=== PATIENT | female | born 1950 | race Caucasian/White ===

== ENCOUNTER → 2017-02-26 | Outpatient (CLI) | payer MEDICARE ==
[~2017-02-26] MED LIST: AMLO25TA PO; ASPI81TA85 PO; BUSP5TA PO; ISOVUE-370 76% 100ML VIAL (Q9967) As Ordered ONE; TRIA37.53 PO; VICO7.5T11 PO
--- NOTE | 2017-02-26 14:46 | REP ---
CT CHEST WITHOUT IV CONTRAST: CT chest performed without IV contrast. CT images are performed using high logic protocol. Comparison is made with prior studies 01/16/2017, 09/18/2016 and 04/03/2016. In the right apex, there is somewhat spiculated nodular soft tissue opacity, which has progressively increased in size since the 2016 exam. Current measurements are approximately 2.6 x 2.1 cm. The density is in contact with the pleural surface posteromedially. No other suspicious parenchymal opacity is seen. There are scattered fibrotic changes in both lungs. There is mild noncalcified pleural plaquing on the left posteriorly and inferiorly. No definite adenopathy is seen. There is no cardiomegaly. There is no pleural or pericardial effusion. There are degenerative changes of the spine. The visualized upper abdominal structures are grossly unremarkable. IMPRESSION: Irregular spiculated soft tissue opacity right apex progressively increasing in size since the 2016 exam. No other suspicious lung nodule. There are noncalcified pleural plaques bilaterally but more so on the left without a mass-like appearance. Signed by Seferino Jacques MD 02/27/2017 07:54 P
== END ==
LOC: M RAD 12:05
PROVIDERS: ATTEND Internal Medicine Pulmonary Disease
DX: R91.8 Other nonspecific abnormal finding of lung field (principal)

== ENCOUNTER 2017-02-27 05:50 | Day surgery (SDC) | payer MEDICARE ==
[~2017-02-27] VITALS: Ht 157.5 cm; Wt 51.7 kg
[~2017-02-27 05:50] MED LIST changes: -ASPI81TA85 PO; -ISOVUE-370 76% 100ML VIAL (Q9967) As Ordered ONE
[2017-02-27] MEDS ORDERED: LR 1,000 ML IV ONE (06:00)
[2017-02-27] MEDS ORDERED: ASPI81TA85 PO (06:44)
[2017-02-27] MEDS ORDERED: ROCURONIUM BROMIDE 50 MG/5 ML VIAL/SYRINGE As Ordered ONE (07:17)
[2017-02-27] MEDS ORDERED: dexameTHASONE 4 MG/ML 1ML VIAL (J1100) As Ordered ONE (07:17)
[2017-02-27] MEDS ORDERED: LIDOCAINE 2% INJ 100 MG/5 ML SDV (FOR ANES.) As Ordered ONE (07:17)
[2017-02-27] MEDS ORDERED: PROPOFOL 200 MG/20 ML VIAL As Ordered ONE (07:17)
[2017-02-27] MEDS ORDERED: fentaNYL 100 MCG/2 ML INJECTION (J3010) As Ordered ONE (07:18)
[2017-02-27] MEDS ORDERED: MIDAZOLAM INJ 2 MG/2 ML VIAL (J2250) As Ordered ONE (07:18)
[2017-02-27] MEDS ORDERED: THROMBIN SOLN 20,000 UNITS KIT As Ordered ONE (07:21)
[2017-02-27] MEDS ORDERED: LIDOCAINE 1% SDV INJ 30 ML VIAL As Ordered ONE (07:21)
[2017-02-27] MEDS ORDERED: EPINEPHrine 1MG/ML INJ 30ML MD-VIAL As Ordered ONE (07:21)
[2017-02-27] MEDS ORDERED: LIDOCAINE 4% TOPICAL SOLN 50 ML BTL As Ordered ONE (07:22)
[2017-02-27] MEDS ORDERED: LIDOCAINE VISCOUS 2% SOLN 15ML UDC As Ordered ONE (07:22)
[2017-02-27] MEDS ORDERED: ePHEDrine SULFATE 25 MG/5 ML(5MG/ML) SYRINGE As Ordered ONE (08:13)
[2017-02-27] MEDS ORDERED: EPINEPHrine 1MG/10ML SYRINGE 1.5IN As Ordered ONE (08:15)
[2017-02-27] MEDS ORDERED: ONDANSETRON 4MG/2ML VIAL (J2405) As Ordered ONE (08:25)
[2017-02-27] MEDS ORDERED: GLYCOPYRROLATE INJ 0.2 MG/ML 2 ML VIAL As Ordered ONE (08:25)
[2017-02-27] MEDS ORDERED: NEOSTIGMINE 10 MG/10 ML VIAL (J2710) As Ordered ONE (08:25)
[2017-02-27] MEDS ORDERED: fentaNYL 100 MCG/2 ML INJECTION (J3010) IV PRN (09:30)
[2017-02-27] MEDS ORDERED: ONDANSETRON 4MG/2ML VIAL (J2405) IV PRN (09:30)
[2017-02-27] MEDS ORDERED: LR 1,000 ML IV SCH (09:30)
--- NOTE | 2017-02-27 09:41 | REP ---
CHEST, ONE VIEW: HISTORY: Postop. COMPARISON: CT chest 02/26/2017. An ill-defined parenchymal density is present in the right lung apex. This corresponds to the spiculated mass seen in the recent CT examination. Patchy density is present in the right mid lung consistent with atelectasis or infiltrate. The left lung is clear. The heart is normal in size. The pulmonary vasculature is normal in appearance. IMPRESSION: 1. There is an ill-defined parenchymal density in the right lung apex corresponding to the spiculated mass seen in the recent CT examination . 2. Right mid lung atelectasis or infiltrate. Signed by Shyam Vides MD 02/27/2017 09:48 A
[2017-02-27 10:55] VITALS: BP 147/68
--- NOTE | 2017-02-27 13:51 | RO ---
DATE OF PROCEDURE: 02/27/2017 PREOPERATIVE DIAGNOSIS: Right upper lobe, lesion abnormal chest CT. POSTOPERATIVE DIAGNOSIS: Right upper lobe lesion, abnormal chest CT. FINDINGS: Smoker airway and mucus. PROCEDURE: Bronchoscopy with electromagnetic navigation with both radial and linear endobronchial ultrasound. SURGEON: Dr. Greg Oreilly. PUTTY [employer] MAKER: None. ANESTHESIA: General. ESTIMATED BLOOD LOSS: None. DRAINS: None. SPECIMENS OBTAINED: 1. Right upper lobe transbronchial biopsies. 2. Right upper lobe FNA GenCut. 3. Right upper lobe bronchoalveolar lavage. 4. Endobronchial ultrasound FNA of the subcarinal node. No observed complications. None replaced. Attempted fiducial marker placement as described below. DESCRIPTION OF PROCEDURE: After informed consent was reviewed with the patient in the preoperative area, she was brought back to the pre-mapped OR room. Time-out was performed with two patient identifiers identifying correct site, correct procedure and general anesthesia was then initiated with an 8.5 endotracheal tube. Time-out was then again performed with two patient identifiers identifying correct site, correct procedure. Bronchoscope and airway was prepped with Cetacaine spray. Bronchoscope was then inserted into the airway. There was copious amounts of mucus. There was the right mainstem intubation. Therefore the endotracheal tube was pulled back. All airways had banding pitting and significant amounts of mucus. All airways were suctioned. RB 1-10 was examined without endobronchial lesions. The bronchus intermedius was normal. Right mainstem bronchus was otherwise normal. Gypsy was only mildly splayed. Left mainstem bronchus was normal. LB 1-10 was normal except for smoker's changes with banding and pitting and significant amounts of mucus. After all airways were suctioned, the bronchoscope was brought back into the endotracheal tube and automatic registration was then performed. Automatic registration was then confirmed and the target #1 in the right upper lobe was easily navigated. This was confirmed under fluoroscopy. After removal of the LG guide from the sheath, the radial ultrasound probe was placed showing near circumferential tumor. Radial probe was then removed. Forceps biopsies were taken along with a GenCut FNA. After adequate sampling, fiducial marker placement was attempted however due to the medial apical nature of the lesion, the Gold fiducial marker could not make the turn without bending the wire and therefore fiducial markers could not be placed due to anatomic location of the lesion. Bronchoalveolar lavage was then performed. The sheath was then removed. All airways were section. Hemostasis was assured and the bronchoscope was removed and the endobronchial ultrasound with linear probe was placed. I viewed the subcarinal area which did not show an enlarged lymph node. However, there was a lymph node present so sampling was performed for staging purposes. Right hilum was unremarkable and the 4R area was unremarkable. I obtained mostly blood on my sampling of the FNA of the subcarinal node. Four biopsies were taken. However, most returned blood, therefore sampling was stopped. After adequate hemostasis, endobronchial ultrasound was removed. The patient was extubated and is in recovery. There is no evidence of complications. Postprocedure chest x-ray shows no evidence of pneumothorax.
== END 2017-02-27 11:00 | disposition home or self-care (01) ==
LOC: M SDC 05:50
PROVIDERS: ATTEND Internal Medicine Pulmonary Disease
DX: C34.11 Malignant neoplasm of upper lobe, right bronchus or lung (principal); I10 Essential (primary) hypertension; R06.02 Shortness of breath; J44.9 Chronic obstructive pulmonary disease, unspecified; M81.0 Age-related osteoporosis without current pathological fracture; Z87.891 Personal history of nicotine dependence; Z79.899 Other long term (current) drug therapy
CPT/HCPCS: 31624; 31627; 31628; 31629; 31652; 71010; 77002; 87102; 87116; 87206; 88108; 88173; 88305; 88313; 88341; 88342; J1100; J2250; J2405; J2710; J3010

== ENCOUNTER 2017-11-09 18:40 | Emergency (ER) | payer MEDICARE ==
[2017-11-09] MEDS: PERCOCET 5MG/325MG TAB PO (21:51)
== END 2017-11-09 22:26 | disposition home or self-care (01) ==
LOC: M ED 18:40
DX: M25.511 Pain in right shoulder (principal); I10 Essential (primary) hypertension; M81.0 Age-related osteoporosis without current pathological fracture; Z87.891 Personal history of nicotine dependence; Z79.82 Long term (current) use of aspirin; Z79.899 Other long term (current) drug therapy
CPT/HCPCS: 99282

== ENCOUNTER 2017-11-12 23:21 | Emergency (ER) | payer MEDICARE ==
[2017-11-12] MEDS ORDERED: NORCO 5/325MG TABLET (BULK FOR ED) PO (23:45)
[2017-11-12] MEDS: NORCO, ANEXSIA 5/325MG TABLET (HYDROcodone/ACETAMINOPHEN) PO (23:45)
== END 2017-11-13 00:17 | disposition home or self-care (01) ==
LOC: M ED 23:21
DX: S46.911A Strain of unspecified muscle, fascia and tendon at shoulder and upper arm level, right arm, initial encounter (principal); X58.XXXA Exposure to other specified factors, initial encounter; Y92.9 Unspecified place or not applicable; Y93.9 Activity, unspecified; Y99.9 Unspecified external cause status; I51.9 Heart disease, unspecified; I10 Essential (primary) hypertension; Z79.82 Long term (current) use of aspirin; Z79.899 Other long term (current) drug therapy
CPT/HCPCS: 99284

== ENCOUNTER → 2017-11-15 | Outpatient (REF) | payer MEDICARE ==
[2017-11-15 11:50] LABS: BASO % 0.2 % (0.0-1.0); HEMATOCRIT 40.9 % (36.0-47.0); HEMOGLOBIN 14.5 g/dl (12.0-15.5); IMMATURE GRANULOCYTE % 1.5 % (0-3.0); LYMPH # 0.9 10^3/uL (1.5-4.5); LYMPH % 7.1 % (24.0-44.0); MEAN CORPUSCULAR HEMOGLOBIN 32.4 pg (27.0-33.0); MEAN CORPUSCULAR HGB CONC 35.5 g/dl (32.0-36.5); MEAN CORPUSCULAR VOLUME 91.5 fl (80.0-96.0); MONO % 7.3 % (0.0-5.0); NEUTROPHILS % 83.9 % (36.0-66.0); PLATELET COUNT, AUTOMATED 320 10^3/uL (150-450); RED BLOOD COUNT 4.47 10^6/uL (4.00-5.40); RED CELL DISTRIBUTION WIDTH 12.2 % (11.5-14.5); WHITE BLOOD COUNT 13.1 10^3/uL (4.0-10.0)
[2017-11-15 12:28] LABS: ALBUMIN 3.4 GM/DL (3.2-5.2); ALBUMIN/GLOBULIN RATIO 1.03 (1.00-1.93); ALKALINE PHOSPHATASE 74 U/L (45-117); ALT/SGPT 20 U/L (12-78); ANION GAP 7 MEQ/L (8-16); AST/SGOT 17 U/L (7-37); BILIRUBIN,TOTAL 0.5 MG/DL (0.2-1.0); BLOOD UREA NITROGEN 35 MG/DL (7-18); C REACTIVE PROTEIN QUANTITATIV < 0.30 MG/DL (0.00-0.30); CALCIUM LEVEL 8.8 MG/DL (8.8-10.2); CARBON DIOXIDE LEVEL 32 MEQ/L (21-32); CHLORIDE LEVEL 97 MEQ/L (98-107); CREATININE FOR GFR 0.86 MG/DL (0.55-1.30); GLOMERULAR FILTRATION RATE > 60.0 (>45); GLUCOSE, FASTING 87 MG/DL (70-100); POTASSIUM SERUM 3.8 MEQ/L (3.5-5.1); SODIUM LEVEL 136 MEQ/L (136-145); TOTAL PROTEIN 6.7 GM/DL (6.4-8.2)
[2017-11-15 12:52] LABS: ERYTHROCYTE SEDIMENTATION RATE 4 mm/hr (0-30)
[2017-11-20 11:24] LABS: ALBUMIN 3.98 GM/DL (3.29-5.55); ALBUMIN % 59.4 % (55.8-66.1); ALPHA-1-GLOBULIN % 4.2 % (2.9-4.9); ALPHA-1-GLOBULINS 0.28 GM/DL (0.17-0.41); ALPHA-2-GLOBULINS 0.76 GM/DL (0.42-0.99); ALPHA-2-GLOBULINS % 11.4 % (7.1-11.8); BETA-1-GLOBULINS % 5.9 % (4.7-7.2); BETA-2-GLOBULINS 0.31 GM/DL (0.19-0.55); BETA-2-GLOBULINS % 4.6 % (3.2-6.5); GAMMA GLOBULIN % 14.5 % (11.1-18.8); GAMMA GLOBULINS 0.97 GM/DL (0.65-1.58)
== END ==
LOC: M LABDRAW1 10:54
DX: S42.391A Other fracture of shaft of right humerus, initial encounter for closed fracture (principal); W18.30XA Fall on same level, unspecified, initial encounter; Y92.009 Unspecified place in unspecified non-institutional (private) residence as the place of occurrence of the external cause
CPT/HCPCS: 84165

== ENCOUNTER → 2017-11-26 | Outpatient (CLI) | payer MEDICARE | LOC: M RAD 09:13 | DX: M84.412D Pathological fracture, left shoulder, subsequent encounter for fracture with routine healing (principal) | CPT/HCPCS: 78306 ==

== ENCOUNTER 2018-01-14 00:13 | Emergency (ER) | payer MEDICARE ==
[2018-01-14] MEDS: MORPHINE 4 MG/ML 1ML VIAL/SYRINGE (J2270) IV ×4 (01:21→06:15)
[2018-01-14 01:55] LABS: BASO % 0.2 % (0.0-1.0); EOS # 0.2 10^3/uL (0.0-0.50); EOS % 0.9 % (0.0-3.0); HEMATOCRIT 32.1 % (36.0-47.0); IMMATURE GRANULOCYTE % 0.5 % (0-3.0); LYMPH # 0.7 10^3/uL (1.5-4.5); LYMPH % 3.7 % (24.0-44.0); MEAN CORPUSCULAR HEMOGLOBIN 32.5 pg (27.0-33.0); MEAN CORPUSCULAR HGB CONC 34.3 g/dl (32.0-36.5); MONO # 1.8 10^3/uL (0.0-0.8); MONO % 9.7 % (0.0-5.0); NEUTROPHILS # 15.6 10^3/uL (1.8-7.7); PLATELET COUNT, AUTOMATED 277 10^3/uL (150-450); RED BLOOD COUNT 3.38 10^6/uL (4.00-5.40); RED CELL DISTRIBUTION WIDTH 13.1 % (11.5-14.5); WHITE BLOOD COUNT 18.3 10^3/uL (4.0-10.0)
[2018-01-14 02:12] LABS: ANION GAP 8 MEQ/L (8-16); BLOOD UREA NITROGEN 15 MG/DL (7-18); CALCIUM LEVEL 9.1 MG/DL (8.8-10.2); CARBON DIOXIDE LEVEL 30 MEQ/L (21-32); CHLORIDE LEVEL 98 MEQ/L (98-107); GLOMERULAR FILTRATION RATE > 60.0 (>45); GLUCOSE, FASTING 103 MG/DL (70-100); POTASSIUM SERUM 3.3 MEQ/L (3.5-5.1); SODIUM LEVEL 136 MEQ/L (136-145)
== END 2018-01-14 06:32 | disposition short-term general hospital (02) ==
LOC: M ED 00:13
DX: C79.51 Secondary malignant neoplasm of bone (principal); G89.29 Other chronic pain; Z85.118 Personal history of other malignant neoplasm of bronchus and lung; M54.9 Dorsalgia, unspecified; J44.9 Chronic obstructive pulmonary disease, unspecified; I10 Essential (primary) hypertension; Z79.899 Other long term (current) drug therapy; Z79.82 Long term (current) use of aspirin
CPT/HCPCS: J2270

== ENCOUNTER → 2018-01-29 | Outpatient (CLI) | payer MEDICARE | LOC: M ONCR 14:24 | DX: C34.11 Malignant neoplasm of upper lobe, right bronchus or lung (principal); C79.51 Secondary malignant neoplasm of bone | CPT/HCPCS: G0463 ==

== ENCOUNTER 2018-01-30 09:57 | Outpatient (RCR) | payer MEDICARE | END 2018-02-10 | LOC: M ONCR 09:57 | DX: C79.51 Secondary malignant neoplasm of bone (principal) | CPT/HCPCS: 77307 ==

== ENCOUNTER → 2018-01-31 | Outpatient (REF) | LOC: SKLAB2 14:06 | DX: C79.51 Secondary malignant neoplasm of bone (principal); M25.50 Pain in unspecified joint ==

== ENCOUNTER 2018-02-02 23:41 | Emergency (ER) | payer MEDICARE ==
[2018-02-03] MEDS: PERCOCET 5MG/325MG TAB PO (01:30)
[2018-02-03 01:34] LABS: BASO % 0.5 % (0.0-1.0); EOS # 0.2 10^3/uL (0.0-0.50); EOS % 1.9 % (0.0-3.0); HEMATOCRIT 32.9 % (36.0-47.0); HEMOGLOBIN 11.2 g/dl (12.0-15.5); IMMATURE GRANULOCYTE % 0.5 % (0-3.0); LYMPH % 13.3 % (24.0-44.0); MEAN CORPUSCULAR VOLUME 97.1 fl (80.0-96.0); MONO # 1.1 10^3/uL (0.0-0.8); MONO % 14.5 % (0.0-5.0); NEUTROPHILS # 5.4 10^3/uL (1.8-7.7); NEUTROPHILS % 69.3 % (36.0-66.0); PLATELET COUNT, AUTOMATED 314 10^3/uL (150-450); RED BLOOD COUNT 3.39 10^6/uL (4.00-5.40); RED CELL DISTRIBUTION WIDTH 14.1 % (11.5-14.5); WHITE BLOOD COUNT 7.8 10^3/uL (4.0-10.0)
[2018-02-03 01:48] LABS: INR 0.92; PROTHROMBIN TIME 12.5 SECONDS (12.1-14.4)
[2018-02-03 01:49] LABS: PARTIAL THROMBOPLASTIN TIME 28.4 SECONDS (25.4-37.6)
[2018-02-03 01:56] LABS: ANION GAP 7 MEQ/L (8-16); BLOOD UREA NITROGEN 18 MG/DL (7-18); C REACTIVE PROTEIN QUANTITATIV 1.07 MG/DL (0.00-0.30); CARBON DIOXIDE LEVEL 32 MEQ/L (21-32); CHLORIDE LEVEL 96 MEQ/L (98-107); CREATININE FOR GFR 0.76 MG/DL (0.55-1.30); GLOMERULAR FILTRATION RATE > 60.0 (>45); GLUCOSE, FASTING 101 MG/DL (70-100); POTASSIUM SERUM 3.5 MEQ/L (3.5-5.1); SODIUM LEVEL 135 MEQ/L (136-145)
[2018-02-03 02:01] LABS: ERYTHROCYTE SEDIMENTATION RATE 31 mm/hr (0-30)
[2018-02-03 02:03] LABS: LACTIC ACID SEPSIS PROTOCOL 2.3 MMOL/L (0.4-2.0)
[2018-02-03] MEDS: APIXABAN 5 MG TAB (ELIQUIS) PO (06:04)
== END 2018-02-03 06:17 | disposition home or self-care (01) ==
LOC: M ED 23:41
DX: I82.611 Acute embolism and thrombosis of superficial veins of right upper extremity (principal)
CPT/HCPCS: 73060

== ENCOUNTER → 2018-02-04 | Outpatient (REF) ==
[2018-02-04 08:00] LABS: HEMATOCRIT 36.4 % (36.0-47.0); HEMOGLOBIN 12.2 g/dl (12.0-15.5); MEAN CORPUSCULAR HEMOGLOBIN 32.7 pg (27.0-33.0); MEAN CORPUSCULAR HGB CONC 33.5 g/dl (32.0-36.5); MEAN CORPUSCULAR VOLUME 97.6 fl (80.0-96.0); PLATELET COUNT, AUTOMATED 322 10^3/uL (150-450); RED BLOOD COUNT 3.73 10^6/uL (4.00-5.40); RED CELL DISTRIBUTION WIDTH 14.2 % (11.5-14.5); WHITE BLOOD COUNT 7.7 10^3/uL (4.0-10.0)
== END ==
LOC: SKLAB2 07:27
DX: Z79.01 Long term (current) use of anticoagulants (principal)

== ENCOUNTER 2018-02-06 14:17 | Emergency (ER) | payer MEDICARE ==
[2018-02-06] MEDS: MORPHINE 4 MG/ML 1ML VIAL/SYRINGE (J2270) IV ×2 (16:32→19:51)
[2018-02-06 16:42] LABS: BASO % 0.4 % (0.0-1.0); EOS # 0.2 10^3/uL (0.0-0.50); EOS % 2.1 % (0.0-3.0); HEMATOCRIT 33.7 % (36.0-47.0); HEMOGLOBIN 11.5 g/dl (12.0-15.5); IMMATURE GRANULOCYTE % 0.4 % (0-3.0); LYMPH # 0.9 10^3/uL (1.5-4.5); LYMPH % 10.5 % (24.0-44.0); MEAN CORPUSCULAR HEMOGLOBIN 33.5 pg (27.0-33.0); MEAN CORPUSCULAR HGB CONC 34.1 g/dl (32.0-36.5); MEAN CORPUSCULAR VOLUME 98.3 fl (80.0-96.0); MONO # 1.1 10^3/uL (0.0-0.8); MONO % 13.3 % (0.0-5.0); NEUTROPHILS % 73.3 % (36.0-66.0); PLATELET COUNT, AUTOMATED 264 10^3/uL (150-450); RED BLOOD COUNT 3.43 10^6/uL (4.00-5.40); RED CELL DISTRIBUTION WIDTH 14.2 % (11.5-14.5); WHITE BLOOD COUNT 8.1 10^3/uL (4.0-10.0)
[2018-02-06 16:53] LABS: INR 1.06; PROTHROMBIN TIME 13.9 SECONDS (12.1-14.4)
[2018-02-06 17:07] LABS: ERYTHROCYTE SEDIMENTATION RATE 35 mm/hr (0-30)
[2018-02-06 17:10] LABS: ANION GAP 9 MEQ/L (8-16); BLOOD UREA NITROGEN 18 MG/DL (7-18); CALCIUM LEVEL 9.5 MG/DL (8.8-10.2); CARBON DIOXIDE LEVEL 30 MEQ/L (21-32); CHLORIDE LEVEL 98 MEQ/L (98-107); CREATININE FOR GFR 0.68 MG/DL (0.55-1.30); GLOMERULAR FILTRATION RATE > 60.0 (>45); GLUCOSE, FASTING 98 MG/DL (70-100); POTASSIUM SERUM 3.7 MEQ/L (3.5-5.1); SODIUM LEVEL 137 MEQ/L (136-145)
[2018-02-06] MEDS: MORPHINE 2 MG/ML 1ML SYRINGE (J2270) IV (18:33)
[2018-02-06] MEDS: AUGMENTIN 875 MG TAB PO (19:51)
== END 2018-02-06 20:24 | disposition home or self-care (01) ==
LOC: M ED 14:17
DX: M79.621 Pain in right upper arm (principal); M79.89 Other specified soft tissue disorders; I82.621 Acute embolism and thrombosis of deep veins of right upper extremity; R93.8 Abnormal findings on diagnostic imaging of other specified body structures; I10 Essential (primary) hypertension; J44.9 Chronic obstructive pulmonary disease, unspecified; Z79.899 Other long term (current) drug therapy; Z79.01 Long term (current) use of anticoagulants; Z79.82 Long term (current) use of aspirin
CPT/HCPCS: J2270

== ENCOUNTER 2018-02-11 12:40 | Outpatient (RCR) | payer MEDICARE | END 2018-03-13 | LOC: M ONCR 02-12 12:30 | DX: C79.51 Secondary malignant neoplasm of bone (principal) | CPT/HCPCS: 77336 ==

== ENCOUNTER → 2018-02-11 | Outpatient (REF) ==
[2018-02-11 09:55] LABS: HEMATOCRIT 32.6 % (36.0-47.0); MEAN CORPUSCULAR HEMOGLOBIN 32.9 pg (27.0-33.0); MEAN CORPUSCULAR HGB CONC 33.7 g/dl (32.0-36.5); MEAN CORPUSCULAR VOLUME 97.6 fl (80.0-96.0); PLATELET COUNT, AUTOMATED 244 10^3/uL (150-450); RED BLOOD COUNT 3.34 10^6/uL (4.00-5.40); WHITE BLOOD COUNT 6.7 10^3/uL (4.0-10.0)
== END ==
LOC: SKLAB2 09:00
DX: D64.9 Anemia, unspecified (principal)

== ENCOUNTER → 2018-02-18 | Outpatient (REF) ==
[2018-02-18 08:59] LABS: HEMATOCRIT 32.5 % (36.0-47.0); MEAN CORPUSCULAR HEMOGLOBIN 33.1 pg (27.0-33.0); MEAN CORPUSCULAR HGB CONC 33.8 g/dl (32.0-36.5); MEAN CORPUSCULAR VOLUME 97.9 fl (80.0-96.0); PLATELET COUNT, AUTOMATED 285 10^3/uL (150-450); RED BLOOD COUNT 3.32 10^6/uL (4.00-5.40); WHITE BLOOD COUNT 7.5 10^3/uL (4.0-10.0)
== END ==
LOC: SKLAB2 08:00
DX: D64.9 Anemia, unspecified (principal)

== ENCOUNTER → 2018-02-25 | Outpatient (REF) ==
[2018-02-25 08:20] LABS: HEMATOCRIT 36.1 % (36.0-47.0); HEMOGLOBIN 11.9 g/dl (12.0-15.5); MEAN CORPUSCULAR HEMOGLOBIN 32.7 pg (27.0-33.0); MEAN CORPUSCULAR VOLUME 99.2 fl (80.0-96.0); PLATELET COUNT, AUTOMATED 313 10^3/uL (150-450); RED BLOOD COUNT 3.64 10^6/uL (4.00-5.40); RED CELL DISTRIBUTION WIDTH 13.6 % (11.5-14.5); WHITE BLOOD COUNT 8.1 10^3/uL (4.0-10.0)
== END ==
LOC: SKLAB2 08:00
DX: D64.9 Anemia, unspecified (principal)

== ENCOUNTER 2018-03-28 22:40 | Emergency (ER) | payer MEDICARE ==
[2018-03-28 23:53] LABS: BASO # 0.1 10^3/uL (0.0-0.2); BASO % 0.6 % (0.0-1.0); EOS # 0.1 10^3/uL (0.0-0.50); EOS % 0.9 % (0.0-3.0); HEMATOCRIT 31.8 % (36.0-47.0); HEMOGLOBIN 10.4 g/dl (12.0-15.5); IMMATURE GRANULOCYTE % 0.5 % (0-3.0); LYMPH # 0.5 10^3/uL (1.5-4.5); LYMPH % 5.4 % (24.0-44.0); MEAN CORPUSCULAR HEMOGLOBIN 31.9 pg (27.0-33.0); MEAN CORPUSCULAR HGB CONC 32.7 g/dl (32.0-36.5); MEAN CORPUSCULAR VOLUME 97.5 fl (80.0-96.0); MONO # 0.9 10^3/uL (0.0-0.8); MONO % 10.1 % (0.0-5.0); NEUTROPHILS % 82.5 % (36.0-66.0); PLATELET COUNT, AUTOMATED 271 10^3/uL (150-450); RED BLOOD COUNT 3.26 10^6/uL (4.00-5.40); RED CELL DISTRIBUTION WIDTH 12.6 % (11.5-14.5); WHITE BLOOD COUNT 8.5 10^3/uL (4.0-10.0)
[2018-03-29 00:06] LABS: ALBUMIN 2.9 GM/DL (3.2-5.2); ALBUMIN/GLOBULIN RATIO 0.76 (1.00-1.93); ALKALINE PHOSPHATASE 121 U/L (45-117); ALT/SGPT 21 U/L (12-78); ANION GAP 8 MEQ/L (8-16); AST/SGOT 42 U/L (7-37); BILIRUBIN,DIRECT 0.1 MG/DL (0.0-0.2); BILIRUBIN,TOTAL 0.3 MG/DL (0.2-1.0); BLOOD UREA NITROGEN 19 MG/DL (7-18); CALCIUM LEVEL 8.3 MG/DL (8.8-10.2); CARBON DIOXIDE LEVEL 31 MEQ/L (21-32); CHLORIDE LEVEL 97 MEQ/L (98-107); GLOMERULAR FILTRATION RATE 43.2 (>45); GLUCOSE, FASTING 119 MG/DL (70-100); LIPASE 30 U/L (73-393); POTASSIUM SERUM 3.7 MEQ/L (3.5-5.1); SODIUM LEVEL 136 MEQ/L (136-145); TOTAL PROTEIN 6.7 GM/DL (6.4-8.2)
[2018-03-29] MEDS: ONDANSETRON 4MG/2ML VIAL (J2405) IV ×2 (00:16)
[2018-03-29] MEDS: MORPHINE 4 MG/ML 1ML VIAL/SYRINGE (J2270) IV ×4 (00:17→03:24)
[2018-03-29] MEDS: GASTROGRAFIN SOLUTION 30ML PO ×4 (00:17→00:52)
[2018-03-29] MEDS ORDERED: ISOVUE-370 76% 100ML VIAL (Q9967) As Ordered ×2 (01:45)
== END 2018-03-29 05:16 | disposition home or self-care (01) ==
LOC: M ED 22:40
DX: R93.2 Abnormal findings on diagnostic imaging of liver and biliary tract (principal); R93.429 Abnormal radiologic findings on diagnostic imaging of unspecified kidney; S32.010A Wedge compression fracture of first lumbar vertebra, initial encounter for closed fracture; S40.021A Contusion of right upper arm, initial encounter; X58.XXXA Exposure to other specified factors, initial encounter; Y92.9 Unspecified place or not applicable; Y93.9 Activity, unspecified; Y99.9 Unspecified external cause status; R22.31 Localized swelling, mass and lump, right upper limb; Z85.830 Personal history of malignant neoplasm of bone; Z79.82 Long term (current) use of aspirin; Z79.899 Other long term (current) drug therapy
CPT/HCPCS: J2270